=== PATIENT | female | born 1990 | race Caucasian/White ===

== ENCOUNTER 2016-07-09 10:49 | Emergency (ER) | payer MEDICAID, OTHER ==
[2016-07-09 10:50] VITALS: BMI 20.9
[2016-07-09 10:54] VITALS: O2SAT 100
[2016-07-09 11:28] LABS: RBC URINE < 1 /hpf (0-3); URINE BILIRUBIN NEGATIVE (NEGATIVE); URINE BLOOD NEGATIVE (NEGATIVE); URINE COLOR Yellow (YELLOW); URINE GLUCOSE (UA) NORMAL (Normal); URINE KETONE NEGATIVE (NEGATIVE); URINE LEUKOCYTE ESTERASE NEG Leu/uL (Negative); URINE PROTEIN NEGATIVE (NEGATIVE); URINE UROBILINOGEN NORMAL mg/dL (0.2-1.0); WBC URINE < 1 /hpf (0-5)
--- NOTE | 2016-07-09 11:53 | C.PDOC ---
History Of Present Illness Patient is a 25 y/o female, , presents to the ED for evaluation of soreness to vagina for the past 5 days. Patient states her test at home was positive. Patient also complains of constipation for the last 2 days. Otherwise , denies any fever, chills, vaginal bleeding, dysuria, abdominal pain, nausea, vomiting, or any other associated symptoms at this time. Time Seen by Provider: 07/09/16 11:12 Chief Complaint (Nursing): Female Genitourinary History Per: Patient History/Exam Limitations: no limitations Onset/Duration Of Symptoms: Days (5) Current Symptoms Are (Timing): Still Present Associated Symptoms: Constipation. denies: Fever, Chills, Nausea, Vomiting, Diarrhea, Loss Of Appetite, Back Pain, Chest Pain Alleviating Factors: None Recent travel outside of the [place]: No Additional History Per: Patient Abnormal Vaginal Bleeding: No : 6 Para: 5 Past Medical History Reviewed: Historical Data, Nursing Documentation, Vital Signs Vital Signs: Last Vital Signs Temp 98.3 F 07/09/16 13:06 Pulse 69 07/09/16 13:06 Resp 16 07/09/16 13:06 BP 120/76 07/09/16 13:06 Pulse Ox 100 07/09/16 13:06 - Medical History PMH: Depression - [facility] Procedures PSYCHIA INTERV/EVAL NEC (07/30/14) Family History: States: No Known Family Hx - Social History Hx Tobacco Use: No Hx Alcohol Use: No Hx Substance Use: No - Immunization History Hx Tetanus Toxoid Vaccination: No Hx Influenza Vaccination: No Hx Pneumococcal Vaccination: No Review Of Systems Except As Marked, All Systems Reviewed And Found Negative. Constitutional: Negative for: Fever, Chills Gastrointestinal: Positive for: Constipation. Negative for: Nausea, Vomiting, Abdominal Pain, Diarrhea Genitourinary: Positive for: Other (soreness to vagina). Negative for: Dysuria , Frequency, Hematuria, Vaginal Discharge, Vaginal Bleeding Musculoskeletal: Negative for: Back Pain Physical Exam - Physical Exam Appears: Non-toxic, No Acute Distress Skin: Normal Color, Warm, Dry Head: Atraumatic, Normacephalic Eye(s): bilateral: Normal Inspection, EOMI Neck: Normal ROM, Supple Chest: Symmetrical Cardiovascular: Rhythm Regular Respiratory: Normal Breath Sounds, No Rales, No Rhonchi, No Wheezing Gastrointestinal/Abdominal: Soft, No Tenderness, No Guarding, No Rebound Pelvic: Normal External Exam, No Vaginal Bleeding, No Vaginal Discharge, No Other (no swelling, or tenderness) Extremity: Normal ROM Neurological/Psych: Oriented x3, Normal Speech, Normal Cognition ED Course And Treatment O2 Sat by Pulse Oximetry: 100 (on RA) Pulse Ox Interpretation: Normal Progress Note: Labs ordered and reviewed. On reassessment, patient is resting comfortably, no acute distress. Medical Decision Making Medical Decision Makin y.o female states she found out was and has soreness to vagina, no abdominal pain or bleeding UA was negative for Patient is requesting blood test for BHCG is 25. Gave results to patient. She remains comfortable and in no acute distress. Advise patient to follow up with extraction supervisor Disposition Counseled Patient/Family Regarding: Need For Followup - [facility]position [facility] Disposition: HOME/ ROUTINE Disposition Time: 13:00 Condition: STABLE Additional Instructions: Please follow up with your extraction supervisor for further evaluation Instructions: (ED) - POA Present On Arrival: None - Clinical Impression Clinical Impression: at early stage - PA / FINAL BLOCK PRESS OPERATOR / Resident Statement MD/DO has reviewed & agrees with the documentation as recorded. - Scribe Statement The provider has reviewed the documentation as recorded by the Maryibtomy Mora All medical record entries made by the Maryibtomy were at my direction and personally dictated by me. I have reviewed the chart and agree that the record accurately reflects my personal performance of the history, physical exam, medical decision making, and the department course for this patient. I have also personally directed, reviewed, and agree with the discharge instructions and disposition.
[2016-07-09 13:07] VITALS: BP 120/76; PULSE 69; RESP 16; TEMP 98.3
== END 2016-07-09 13:07 | disposition home or self-care (01) ==
LOC: C.ER 10:49
DX: O26.891 Other specified pregnancy related conditions, first trimester (principal); Z3A.00 Weeks of gestation of pregnancy not specified

== ENCOUNTER 2016-07-12 20:37 | Emergency (ER) | payer MEDICAID, OTHER ==
[2016-07-12 20:38] VITALS: BMI 20.9
[2016-07-12] MEDS ORDERED: Sodium Chloride 0.9% 1,000 ML IV ONE (21:32)
[2016-07-12] MEDS ORDERED: Sodium Chloride 0.9% 1,000 ML ONE (21:45)
[2016-07-12 21:56] LABS: BASO % 0.5 % (0.0-2.0); EOS # 0.1 K/uL (0.0-0.7); EOS % 1.8 % (0.0-4.0); HEMATOCRIT 37.1 % (34.0-47.0); LYMPH # 2.2 K/uL (1.0-4.3); MEAN CELL VOLUME 85.9 fL (81.0-99.0); MEAN CORPUSCULAR HGB CONC 32.6 g/dL (33.0-37.0); MEAN PLATELET VOLUME 11.5 fL (7.2-11.7); MONO # 0.5 K/uL (0.0-0.8); MONO % 10.2 % (0.0-10.0); NRBC % 0.1 % (0.0-2.0); RED CELL DISTRIBUTION WIDTH 13.9 % (11.5-14.5); WHITE BLOOD COUNT 5.4 K/uL (4.8-10.8)
[2016-07-12 21:58] LABS: RBC URINE 24 /hpf (0-3); URINE BILIRUBIN NEGATIVE (NEGATIVE); URINE COLOR Yellow (YELLOW); URINE GLUCOSE (UA) NORMAL (Normal); URINE KETONE NEGATIVE (NEGATIVE); URINE LEUKOCYTE ESTERASE NEG Leu/uL (Negative); URINE PROTEIN NEGATIVE (NEGATIVE); WBC URINE 1 /hpf (0-5)
[2016-07-12 22:11] LABS: URINE BLOOD 1+ (NEGATIVE)
[2016-07-12 22:14] LABS: CHLORIDE 102 mmol/L (98-107); POTASSIUM 3.7 mmol/L (3.6-5.2); SODIUM 138 mmol/L (132-148)
[2016-07-12 22:16] LABS: GFR AFRICAN-AMERICAN > 60
--- NOTE | 2016-07-12 22:16 | C.PDOC ---
History Of Present Illness 25 y/o female, [id number], LMP 06/08/16, presents to ED with complaint of lower abdominal cramping and vaginal bleeding since this morning. Patient states she feels like she is having a miscarriage. Denies fever, chills, nausea, vomiting, urinary symptoms, or other complaints. Time Seen by Provider: 07/12/16 21:27 Chief Complaint (Nursing): Female Genitourinary History Per: Patient History/Exam Limitations: no limitations Onset/Duration Of Symptoms: Hrs Current Symptoms Are (Timing): Still Present Quality Of Discomfort: Cramping Associated Symptoms: Other (vaginal bleeding). denies: Fever, Chills, Nausea, Vomiting, Diarrhea, Urinary Symptoms Recent travel outside of the [place]: No Abnormal Vaginal Bleeding: Yes : 5 Para: 6 Miscarriage: 1 Past Medical History Reviewed: Historical Data, Nursing Documentation, Vital Signs Vital Signs: Last Vital Signs Temp 98.1 F 07/12/16 22:54 Pulse 68 07/12/16 22:54 Resp 17 07/12/16 22:54 BP 116/76 07/12/16 22:54 Pulse Ox 100 07/12/16 22:54 - Medical History PMH: Depression - [facility] Procedures PSYCHIA INTERV/EVAL NEC (07/30/14) Family History: States: Unknown Family Hx - Social History Hx Tobacco Use: No Hx Alcohol Use: No Hx Substance Use: No - Immunization History Hx Tetanus Toxoid Vaccination: No Hx Influenza Vaccination: No Hx Pneumococcal Vaccination: No Review Of Systems Except As Marked, All Systems Reviewed And Found Negative. Constitutional: Negative for: Fever, Chills Respiratory: Negative for: Cough, Shortness of Breath Gastrointestinal: Positive for: Abdominal Pain. Negative for: Nausea, Vomiting , Diarrhea Genitourinary: Positive for: Vaginal Bleeding. Negative for: Dysuria, Hematuria Skin: Negative for: Rash Physical Exam - Physical Exam Appears: Non-toxic, No Acute Distress Skin: Normal Color, Warm, Dry Head: Atraumatic, Normacephalic Oral Mucosa: Moist Respiratory: Normal Breath Sounds, No Rales, No Rhonchi, No Wheezing Gastrointestinal/Abdominal: Soft, Tenderness (mild, suprapubic), No Distention, No Guarding, No Rebound Back: No CVA Tenderness Pelvic: Other (deferred) Extremity: Normal ROM, Capillary Refill (< 2 esc. ) Neurological/Psych: Oriented x3, Normal Speech, Normal Cognition ED Course And Treatment - Laboratory Results Result Diagrams: 07/12/16 21:42 07/12/16 21:42 Lab Interpretation: Normal (HCG neg) Urine POC: Negative (ua neg.) O2 Sat by Pulse Oximetry: 96 (RA) Pulse Ox Interpretation: Normal - CT Scan/US Ultrasound Other Rad Studies (CT/US): Read By Radiologist, Radiology Report Reviewed CT/US Interpretation: IMPRESSION: 1. No intrauterine gestation. DDX: Early IUP , missed , ectopic Progress Note: Labs and transvaginal US ordered. Treated with IVFs and Ultram 50mg PO. Reevaluation Time: 23:10 Reassessment Condition: Improved Medical Decision Making Medical Decision Making: pt NOT menstrual bleeding and cramps. Disposition Doctor Will See Patient In The: Office Counseled Patient/Family Regarding: Studies Performed, Diagnosis - Disposition Disposition: HOME/ ROUTINE Disposition Time: 23:10 Condition: GOOD - Clinical Impression Clinical Impression: Heavy menstrual period - Scribe Statement The provider has reviewed the documentation as recorded by the Hank Garrison Provider Scribe Attestation: All medical record entries made by the Hank were at my direction and personally dictated by me. I have reviewed the chart and agree that the record accurately reflects my personal performance of the history, physical exam, medical decision making, and the department course for this patient. I have also personally directed, reviewed, and agree with the discharge instructions and disposition.
[2016-07-12 22:17] LABS: ALB/GLOB RATIO 1.3 (1.0-2.1); ALKALINE PHOSPHATASE 80 U/L (38-126); ALT/SGPT 14 U/L (9-52); AST/SGOT 36 U/L (14-36); BILIRUBIN,TOTAL 0.4 mg/dL (0.2-1.3); BLOOD UREA NITROGEN 14 mg/dL (7-17); CALCIUM 8.5 mg/dl (8.6-10.4); CARBON DIOXIDE 27 mmol/L (22-30); GLUCOSE,RANDOM 92 mg/dL (65-105); TOTAL PROTEIN 6.9 g/dL (6.3-8.3)
[2016-07-12 22:54] VITALS: BP 116/76; PULSE 68; RESP 17; TEMP 98.1
[2016-07-12 23:11] VITALS: O2SAT 96
--- NOTE | 2016-07-13 09:27 | US ---
HISTORY: ? miscarraige/ectopic COMPARISON: None available. TECHNIQUE: Transabdominal and transvaginal FINDINGS: UTERUS: Measures 9.5 x 4.9 x 5.6 cm. Normal in size and appearance. No fibroid or other mass lesion seen. ENDOMETRIUM: Measures 1.0 mm in diameter. No intrauterine gestation identified. CERVIX: 2.7 cm length. Unremarkable. RIGHT OVARY: Measures 3.1 x 1.9 x 3.3 cm. No solid mass. Normal flow. LEFT OVARY: Measures 3.4 x 1.6 x 3.7 cm. No solid mass. Normal flow. FREE FLUID: No significant free fluid noted. OTHER FINDINGS: None. IMPRESSION: No intrauterine gestation identified. Please correlate with beta HCG as ectopic gestation must be considered in the appropriate clinical setting with elevated beta HCG and no intrauterine gestational sac demonstrated. Preliminary interpretation of this examination was reported by [facility] at 10:32 p.m. on 07/12/2016. There is concurrence of this report with the preliminary interpretation.
== END 2016-07-12 23:19 | disposition home or self-care (01) ==
LOC: C.ER 20:37
DX: N92.0 Excessive and frequent menstruation with regular cycle (principal)
CPT/HCPCS: 76830; 76856; 80053; 81001; 84702; 84703; 85025; 86850; 86900; 96360; 99284; J7040

== ENCOUNTER 2017-09-11 19:49 | Emergency (ER) | payer MEDICAID, OTHER ==
[2017-09-11 19:49] VITALS: BMI 20.9
[2017-09-11 19:58] VITALS: RESP 16; TEMP 99.6
--- NOTE | 2017-09-11 20:01 | C.PDOC ---
"History Of Present Illness <Angela Quintana - Last Filed: 09/11/17 21:31> <Dorita Truong - Last Filed: 09/11/17 22:59> 27 year old female presents to the ER complaining of lower back pain radiating down right leg for 2 days. Notes h/o of similar episode when diagnosed with ? Restless leg syndrome versus pinched nerve. Also complains of pelvic pain x 2 days. She denies taking anything for the pain. She also denies any incontinence , dysuria, vaginal discharge or bleeding, hematuria, vomiting, diarrhea, change in sensation or fever. She reports her last test was positive. LMP: . (Angela Quintana) History Per: Patient History/Exam Limitations: no limitations Onset/Duration Of Symptoms: Days Current Symptoms Are (Timing): Still Present <Angela Quintana - Last Filed: 09/11/17 21:31> <Dorita Truong - Last Filed: 09/11/17 22:59> Time Seen by Provider: 09/11/17 19:58 Chief Complaint (Nursing): Hip Pain Past Medical History Reviewed: Historical Data, Nursing Documentation, Vital Signs - Medical History PMH: Depression Denies: HIV, HTN, Seizures, Sexually Transmitted Disease Other Surgeries: Hx of surgeries Family History: States: No Known Family Hx - Social History Hx Tobacco Use: No Hx Alcohol Use: No Hx Substance Use: No - Immunization History Hx Tetanus Toxoid Vaccination: No Hx Influenza Vaccination: No Hx Pneumococcal Vaccination: No <Angela Quintana - Last Filed: 09/11/17 21:31> Vital Signs: Last Vital Signs Temp 99.6 F 09/11/17 19:53 Pulse 78 09/11/17 19:53 Resp 16 09/11/17 19:53 BP 148/90 09/11/17 19:53 Pulse Ox 100 09/11/17 21:34 - [facility] Procedures PSYCHIA INTERV/EVAL NEC (07/30/14) Review Of Systems Except As Marked, All Systems Reviewed And Found Negative. Constitutional: Negative for: Fever, Chills Gastrointestinal: Negative for: Nausea, Vomiting, Diarrhea Genitourinary: Positive for: Pelvic Pain. Negative for: Dysuria, Incontinence, Hematuria, Vaginal Discharge, Vaginal Bleeding Musculoskeletal: Positive for: Back Pain (Lower back ) <Angela Quintana - Last Filed: 09/11/17 21:31> Physical Exam - Physical Exam Appears: Non-toxic, No Acute Distress Skin: Normal Color, Warm, Dry Head: Atraumatic, Normacephalic Eye(s): bilateral: Normal Inspection, EOMI Nose: Normal Oral Mucosa: Moist Chest: Symmetrical Cardiovascular: Rhythm Regular Respiratory: Normal Breath Sounds, No Accessory Muscle Use, Other (Speaking full sentences) Gastrointestinal/Abdominal: Soft, Tenderness (Suprapubic) Back: No CVA Tenderness, No Vertebral Tenderness, Other (Parasacral tenderness ) Extremity: Normal ROM Neurological/Psych: Oriented x3, Normal Speech, Normal Sensation Gait: Steady <Angela Quintana - Last Filed: 09/11/17 21:31> ED Course And Treatment O2 Sat by Pulse Oximetry: 100 (RA) Pulse Ox Interpretation: Normal Progress Note: Patient assessed and examined. Patient given Tylenol 650mg PO. Urine collected and sent to lab for analysis. US Pelvis ordered. Case endorsed to Dr Truong pending labs and US. <Angela Quintana - Last Filed: 09/11/17 21:31> - Laboratory Results Result Diagrams: 09/11/17 21:18 09/11/17 21:18 <Dorita Truong - Last Filed: 09/11/17 22:59> Disposition - Disposition Disposition Time: 22:00 <Angela Quintana - Last Filed: 09/11/17 21:31> <Dorita Truong - Last Filed: 09/11/17 22:59> - Disposition Condition: STABLE Forms: [employer] ([place]) - Clinical Impression Clinical Impression: Pelvic pain, Back pain - PA / SOLAR MANUFACTURER'S REPRESENTATIVE / Resident Statement MD/DO has reviewed & agrees with the documentation as recorded. - Scribe Statement The provider has reviewed the documentation as recorded by the Scribe <Angela Quintana - Last Filed: 09/11/17 21:31> <Dorita Truong - Last Filed: 09/11/17 22:59> - Scribe Statement Sheryl Merrill All medical record entries made by the Scribe were at my direction and personally dictated by me. I have reviewed the chart and agree that the record accurately reflects my personal performance of the history, physical exam, medical decision making, and the department course for this patient. I have also personally directed, reviewed, and agree with the discharge instructions and disposition. (Angela Quintana) Addendum <Angela Quintana - Last Filed: 09/11/17 21:31> <Dorita Truong - Last Filed: 09/11/17 22:59> Addendum: 09/11/17 22:59 EXAM: US First Trimester, Transabdominal US , Transvaginal CLINICAL HISTORY: 27 years old, female; Pain; complicated by abdominal or pelvic pain; Lower; First trimester; Gestational age or lmp: 08/15/2017; TECHNIQUE: Real-time transabdominal and transvaginal obstetrical ultrasound of the maternal pelvis and a first trimester with image documentation. Transvaginal imaging was used for better evaluation of the fetus and adnexa. COMPARISON: CT - ABD PELVIS W/O PO OR IV CONT 2015-05-05 18:17 FINDINGS: Gestation: Small anechoic eccentric fluid collection and along the endometrial canal measuring 4 mm x 4 mm x 4 mm, possibly representing a gestational sac. This would correspond to a mean gestational sac diameter of 0.4 cm. No yolk sac or pole. Placenta/amniotic fluid: Cannot be adequately evaluated given lack of definitive intrauterine . Uterus/cervix: The uterus measures 9.5 cm x 5.5 cm x 6.4 cm. Heterogeneous appearance of the endometrium which measures 2.3 cm in thickness. No myometrial mass. Ovaries: The right ovary is normal in size and echotexture measuring 3.1 cm x 2.0 cm x 3.1 cm. Normal color Doppler flow and spectral Doppler waveform are present within this ovary. The left ovary is normal size and echotexture measuring 3.3 cm x 2.5 cm x 3.6 cm. Normal color Doppler flow and spectral Doppler waveforms are present within this ovary. No mass. Free fluid: No free fluid. Bladder: The imaged urinary bladder is unremarkable. AKILAH HOPPER | Preliminary Radiology Report CONFIDENTIALITY STATEMENT This report is intended only for the use of the referring physician, and only in accordance with law, If you received this in error, call [phone] Page 2 of 2 IMPRESSION: 1. Anechoic structure within the endometrial canal measuring 4 mm which may represent a gestational sac. No pole or yolk sac are identified. This could represent a very early intrauterine , but is not definitive, and does not exclude the possibility of an ectopic (although no imaging findings are present to suggest an ectopic ). RECOMMEND close clinical surveillance, trending beta-hCGs, and followup ultrasound in 2 weeks. 2. Normal appearance of the ovaries. No ovarian torsion. 3. No adnexal mass or concerning adnexal abnormality. Thank you for allowing us to participate in the care of your patient. Dictated and Authenticated by: Leonardo Escamilla DO 09/11/2017 10:50 PM Eastern Time ([place] & [place]) (Dorita Truong"
[2017-09-11 20:30] LABS: SQUAMOUS EPITHIAL 3 /hpf (0-5); URINE BILIRUBIN NEGATIVE (NEGATIVE); URINE BLOOD NEGATIVE (NEGATIVE); URINE CLARITY Clear (Clear); URINE COLOR Yellow (YELLOW); URINE GLUCOSE (UA) NORMAL (Normal); URINE LEUKOCYTE ESTERASE NEG Leu/uL (Negative); URINE PROTEIN NEGATIVE (NEGATIVE); URINE UROBILINOGEN NORMAL mg/dL (0.2-1.0)
[2017-09-11 20:40] LABS: HCG,QUALITATIVE URINE POSITIVE (NEGATIVE)
[2017-09-11 21:35] LABS: BASO % 0.3 % (0.0-2.0); EOS # 0.1 K/uL (0.0-0.7); EOS % 1.1 % (0.0-4.0); HEMOGLOBIN 12.9 g/dL (11.0-16.0); LYMPH # 1.9 K/uL (1.0-4.3); LYMPH % 31.7 % (20.0-40.0); MEAN CELL VOLUME 86.2 fL (81.0-99.0); MEAN CORPUSCULAR HEMOGLOBIN 28.9 pg (27.0-31.0); MEAN CORPUSCULAR HGB CONC 33.6 g/dL (33.0-37.0); MEAN PLATELET VOLUME 12.4 fL (7.2-11.7); MONO # 0.5 K/uL (0.0-0.8); MONO % 8.6 % (0.0-10.0); NEUT # 3.5 K/uL (1.8-7.0); NEUT % 58.3 % (50.0-75.0); NRBC % 0.1 % (0.0-2.0); RBC 4.45 Mil/uL (3.80-5.20); RED CELL DISTRIBUTION WIDTH 14.6 % (11.5-14.5)
[2017-09-11 21:38] LABS: ALB/GLOB RATIO 1.6 (1.0-2.1); ALBUMIN 4.4 g/dL (3.5-5.0); ALT/SGPT 16 U/L (9-52); AST/SGOT 12 U/L (14-36); BLOOD UREA NITROGEN 11 mg/dL (7-17); CALCIUM 9.2 mg/dl (8.6-10.4); GFR AFRICAN-AMERICAN > 60; GFR NON-AFRICAN AMERICAN > 60
[2017-09-11 23:23] VITALS: BP 132/84; PULSE 76; O2SAT 99
--- NOTE | 2017-09-12 10:30 | US ---
Pelvic ultrasound History: Pelvic pain. Comparison: None available. Technique: Real-time sonography was performed through the pelvis utilizing transabdominal and transvaginal techniques. Findings: Uterus: 9.5 x 5.5 x 6.4 centimeters. Heterogeneous echotexture. Anteverted. Beta HCG level pending. Heterogeneous appearance of the endometrium measuring up to 2.3 centimeters, prominent. Small anechoic eccentric fluid collection along the endometrial canal measuring 4 x 4 x 4 millimeters. This may represent a gestational sac. This would correspond to a mean gestational sac diameter of 4 millimeters. No yolk sac or pole identified. Trace free fluid within the pelvic cul-de-sac. Right ovary: 3.1 x 1.9 x 3.1 centimeters. Normal flow. Left ovary: 3.3 x 2.5 x 3.6 centimeters. Normal flow. Impression: 1. B HCG level pending. Clinical correlation. 2. Anechoic structure within the endometrial canal measuring 4 millimeters which may represent a gestational sac. No pole or yolk sac are identified. This may represent a very early intrauterine but is not definitive and does not exclude the possibility of ectopic (although no imaging findings are present to suggest an ectopic ). Recommend close clinical surveillance, trending beta HCGs, and follow-up ultrasound in 1-2 weeks. These findings were preliminarily reported at 10:50 p.m. on 09/11/[address] Leonardo Piedra from [facility].
== END 2017-09-11 23:22 | disposition home or self-care (01) ==
LOC: C.ER 19:49
DX: O26.891 Other specified pregnancy related conditions, first trimester (principal); M54.5 Low back pain; R10.2 Pelvic and perineal pain

== ENCOUNTER 2017-09-13 19:07 | Emergency (ER) | payer SELFPAY ==
[2017-09-13 19:08] VITALS: BMI 20.9
[2017-09-13 19:31] VITALS: BP 132/87; PULSE 84; RESP 14; TEMP 98.5; O2SAT 99
--- NOTE | 2017-09-13 20:46 | C.PDOC ---
History Of Present Illness 27 year old female presents to the ER for a follow up beta hcg. Patient was seen in the ER on 09/11 and was found to have hcg of 72, she was advised to follow up for repeat beta hcg and possible US. Denies vaginal bleeding, vaginal discharge, or abdominal pain. Time Seen by Provider: 09/13/17 19:39 Chief Complaint (Nursing): Medical Clearance History Per: Patient History/Exam Limitations: no limitations Onset/Duration Of Symptoms: Days Current Symptoms Are (Timing): Still Present Recent travel outside of the [place]: No Past Medical History Reviewed: Historical Data, Nursing Documentation, Vital Signs Vital Signs: Last Vital Signs Temp 98.5 F 09/13/17 19:28 Pulse 84 09/13/17 19:28 Resp 14 09/13/17 19:28 BP 132/87 09/13/17 19:28 Pulse Ox 99 09/13/17 20:55 - Medical History PMH: Depression - [facility] Procedures PSYCHIA INTERV/EVAL NEC (07/30/14) Family History: States: Unknown Family Hx - Social History Hx Tobacco Use: No Hx Alcohol Use: No Hx Substance Use: No - Immunization History Hx Tetanus Toxoid Vaccination: No Hx Influenza Vaccination: No Hx Pneumococcal Vaccination: No Review Of Systems Constitutional: Negative for: Fever, Chills Gastrointestinal: Negative for: Abdominal Pain Genitourinary: Negative for: Vaginal Discharge, Vaginal Bleeding, Pelvic Pain Musculoskeletal: Negative for: Back Pain Physical Exam - Physical Exam Appears: Non-toxic Skin: Normal Color, Warm, Dry Head: Atraumatic, Normacephalic Eye(s): bilateral: Normal Inspection Chest: Symmetrical, No Tenderness Cardiovascular: Rhythm Regular Respiratory: Normal Breath Sounds, No Rales, No Rhonchi, No Wheezing Gastrointestinal/Abdominal: Soft, No Tenderness Neurological/Psych: Oriented x3, Normal Speech ED Course And Treatment O2 Sat by Pulse Oximetry: 99 (Room air) Pulse Ox Interpretation: Normal Progress Note: Beta hcg ordered. Patient is in no distress at this time, vitals are stable, hcg results were discussed with patient, repeat US not recommended at this time. Pt was advised to follow up with OB. Reevaluation Time: 22:52 Reassessment Condition: Improved Disposition - Disposition Disposition: HOME/ ROUTINE Disposition Time: 22:50 Condition: STABLE Additional Instructions: Please follow up with DRY HOUSE WHEELER for repeat BHCG Return to ER if worse Forms: General Discharge Instructions, [facility] (Norwegian) - Clinical Impression Clinical Impression: Medical assessment, Visit for blood test - PA / SITE SUPERVISING TECHNICAL OPERATOR / Resident Statement MD/DO has reviewed & agrees with the documentation as recorded. - Scribe Statement The provider has reviewed the documentation as recorded by the Scribe Samson Og All medical record entries made by the Scribe were at my direction and personally dictated by me. I have reviewed the chart and agree that the record accurately reflects my personal performance of the history, physical exam, medical decision making, and the department course for this patient. I have also personally directed, reviewed, and agree with the discharge instructions and disposition.
== END 2017-09-13 21:06 | disposition home or self-care (01) ==
LOC: C.ER 19:07
DX: Z36.89 Encounter for other specified antenatal screening (principal)

== ENCOUNTER 2017-10-22 10:26 | Emergency (ER) | payer OTHER ==
[2017-10-22 10:27] VITALS: BMI 20.9
[2017-10-22 10:37] VITALS: RESP 18
[2017-10-22 11:13] LABS: BASO % 0.4 % (0.0-2.0); EOS % 0.6 % (0.0-4.0); LYMPH # 1.5 K/uL (1.0-4.3); MEAN CELL VOLUME 85.6 fL (81.0-99.0); MEAN CORPUSCULAR HEMOGLOBIN 29.5 pg (27.0-31.0); MEAN CORPUSCULAR HGB CONC 34.5 g/dL (33.0-37.0); MEAN PLATELET VOLUME 11.2 fL (7.2-11.7); MONO # 0.4 K/uL (0.0-0.8); MONO % 6.5 % (0.0-10.0); NEUT # 4.3 K/uL (1.8-7.0); NEUT % 68.5 % (50.0-75.0); NRBC % 0.1 % (0.0-2.0); RBC 4.4 Mil/uL (3.80-5.20); RED CELL DISTRIBUTION WIDTH 14.3 % (11.5-14.5); WHITE BLOOD COUNT 6.3 K/uL (4.8-10.8)
--- NOTE | 2017-10-22 11:13 | C.PDOC ---
History Of Present Illness 27 y/o A3 female, approximately 9 weeks , presents to the ED complaining of abdominal cramping that started last night. Associated with light vaginal spotting this morning. Patient then called her OBGYN, Dr. Clark, who referred her to come to the ED. Her last ultrasound was 1.5 weeks ago and was normal per patient. She states her last three pregnancies have been miscarried, at 11 weeks, 6 weeks, and 7 weeks, respectively. Patient notes the cramping comes and goes, and is worsened when sitting in certain positions. Otherwise she denies any fever, chills, nausea, vomiting, or other associated symptoms. Time Seen by Provider: 10/22/17 10:41 Chief Complaint (Nursing): Female Genitourinary History Per: Patient History/Exam Limitations: no limitations Onset/Duration Of Symptoms: Hrs Current Symptoms Are (Timing): Still Present Quality Of Discomfort: Cramping Abnormal Vaginal Bleeding: Yes : 9 Para: 5 Miscarriage: 3 Past Medical History Reviewed: Historical Data, Nursing Documentation, Vital Signs Vital Signs: Last Vital Signs Temp 98.6 F 10/22/17 10:35 Pulse 80 10/22/17 10:35 Resp 18 10/22/17 10:35 BP 146/82 10/22/17 10:35 Pulse Ox 99 10/22/17 12:20 - Medical History PMH: Depression, HTN Denies: HIV, Seizures, Sexually Transmitted Disease Surgical History: No Surg Hx Denies: - [facility] Procedures PSYCHIA INTERV/EVAL NEC (07/30/14) Family History: States: Unknown Family Hx - Social History Hx Tobacco Use: No Hx Alcohol Use: No Hx Substance Use: No - Immunization History Hx Tetanus Toxoid Vaccination: No Hx Influenza Vaccination: No Hx Pneumococcal Vaccination: No Review Of Systems Constitutional: Negative for: Fever, Chills, Sweats Cardiovascular: Negative for: Chest Pain Respiratory: Negative for: Shortness of Breath Gastrointestinal: Positive for: Abdominal Pain (cramping). Negative for: Nausea , Vomiting, Diarrhea Genitourinary: Positive for: Vaginal Bleeding (spotting). Negative for: Dysuria , Incontinence, Vaginal Discharge Neurological: Negative for: Weakness, Headache, Dizziness Physical Exam - Physical Exam Appears: Non-toxic, No Acute Distress Skin: Normal Color, Warm, Dry Head: Atraumatic, Normacephalic Eye(s): bilateral: Normal Inspection, PERRL, EOMI Oral Mucosa: Moist Neck: Supple Chest: Symmetrical Cardiovascular: Rhythm Regular Respiratory: Normal Breath Sounds, No Rales, No Rhonchi, No Wheezing Gastrointestinal/Abdominal: Bowel Sounds (normoactive), Soft, Tenderness ( Minimal suprapubic tenderness), No Guarding, No Rebound Back: Normal Inspection Extremity: Bilateral: Atraumatic, Normal Color And Temperature, Normal ROM Pulses: Left Dorsalis Pedis: Normal, Right Dorsalis Pedis: Normal Neurological/Psych: Oriented x3, Normal Speech ED Course And Treatment - Laboratory Results Result Diagrams: 10/22/17 11:08 10/22/17 11:08 O2 Sat by Pulse Oximetry: 99 (RA) Pulse Ox Interpretation: Normal - CT Scan/US US Other Rad Studies (CT/US): Read By Radiologist, Radiology Report Reviewed CT/US Interpretation: Accession No. : [id number]. Patient Name / ID : CYNTHIA ISBELL / [id number]. Exam Date : 10/22/2017 11:18:33 ( Approved ). Study Comment : Sex / Age : F / 27Y. Creator : Adelina Suarez MD. Dictator : Adelina Suarez MD. Audio Recording Engineer : [employer]clamation Kettle Tender : Adelina Suarez MD. Approver2 : Report Date : 10/22/2017 11:36:52. My Comment : . Date of service: 10/22/17. Indication: , spotting, abdominal pain. Comparison: Pelvic ultrasound performed 09/11/17. Technique: Transabdominal pelvic ultrasound. Findings: The uterus measures approximately 11.3 x 8.1 x 9.4 cm. Anteverted. Cervix length measures approximately 3.6 cm. There is a single intrauterine fetus present. 4 mm yolk sac. The gestational sac measures 4.8 cm and is compatible with a gestational age of 10 weeks 4 days. The crown- rump length measures 3.0 cm and is compatible with a gestational age of 9 weeks 6 days. There is heart motion which measured 163.5 BPM. The right ovary measures 3.1 x 1.9 x 2.4 cm. The left ovary measures 3.5 x 2.3 x 3.2 cm. Blood flow was demonstrated to both ovaries. Impression: Live single intrauterine with estimated gestational age 9 weeks 6 days. heart rate 163.5 bpm. Advise an anomaly screen at 16-18 weeks gestational age Medical Decision Making Medical Decision Making: Initial Plan: --Blood work --Urinalysis --Blood type/screen --OB US Labs reviewed. UA is negative. Ultrasound demonstrates live IUP, with estimated age of 9 weeks 6 days. Copy of report provided. 12:[address] Clark, who advises patient can be discharged home and follow up in the office on Wednesday. patient advised pelvic rest, blood type is B positive, no need for Rhogam Disposition Discussed With Dr.: Clayton Clark Doctor Will See Patient In The: Office Counseled Patient/Family Regarding: Studies Performed, Diagnosis, Need For Followup - Disposition Referrals: Clayton Clark MD [Staff Provider] - Disposition: HOME/ ROUTINE Disposition Time: 12:31 Condition: GOOD Additional Instructions: Please follow up with Dr Clark on Wednesday. Bring ultrasound report with you. Pelvic rest- nothing in vagina, no sex, tampons or douching. Return to ER for any worsening pain, heavy vaginal bleeding or any other concerns. Instructions: Threatened Miscarriage (DC) Forms: [employer] (N[place]ian), General Discharge Instructions - POA Present On Arrival: None - Clinical Impression Clinical Impression: Threatened - PA / ROUTE SUPERVISOR / Resident Statement MD/ has reviewed & agrees with the documentation as recorded. - Scribe Statement The provider has reviewed the documentation as recorded by the Scribe (Melissa Mendez) All medical record entries made by the Scribe were at my direction and personally dictated by me. I have reviewed the chart and agree that the record accurately reflects my personal performance of the history, physical exam, medical decision making, and the department course for this patient. I have also personally directed, reviewed, and agree with the discharge instructions and disposition.
[2017-10-22 11:18] LABS: SQUAMOUS EPITHIAL 2 /hpf (0-5); URINE BILIRUBIN NEGATIVE (NEGATIVE); URINE BLOOD NEGATIVE (NEGATIVE); URINE CLARITY Clear (Clear); URINE COLOR Yellow (YELLOW); URINE GLUCOSE (UA) NORMAL (Normal); URINE LEUKOCYTE ESTERASE NEG Leu/uL (Negative); URINE PROTEIN NEGATIVE (NEGATIVE); URINE UROBILINOGEN NORMAL mg/dL (0.2-1.0)
[2017-10-22 11:26] LABS: ALB/GLOB RATIO 1.4 (1.0-2.1); ALBUMIN 4.2 g/dL (3.5-5.0); ALT/SGPT 22 U/L (9-52); AST/SGOT 15 U/L (14-36); BLOOD UREA NITROGEN 9 mg/dL (7-17); CALCIUM 9.3 mg/dl (8.6-10.4); GFR NON-AFRICAN AMERICAN > 60
--- NOTE | 2017-10-22 11:38 | US ---
Date of service: 10/22/17 Indication: , spotting, abdominal pain Comparison: Pelvic ultrasound performed 09/11/17 Technique: Transabdominal pelvic ultrasound Findings: The uterus measures approximately 11.3 x 8.1 x 9.4 cm. Anteverted. Cervix length measures approximately 3.6 cm. There is a single intrauterine fetus present. 4 mm yolk sac. The gestational sac measures 4.8 cm and is compatible with a gestational age of 10 weeks 4 days. The crown-rump length measures 3.0 cm and is compatible with a gestational age of 9 weeks 6 days. There is heart motion which measured 163.5 BPM. The right ovary measures 3.1 x 1.9 x 2.4 cm. The left ovary measures 3.5 x 2.3 x 3.2 cm. Blood flow was demonstrated to both ovaries. Impression: Live single intrauterine with estimated gestational age 9 weeks 6 days. heart rate 163.5 bpm. Advise an anomaly screen at 16-18 weeks gestational age
[2017-10-22 12:44] VITALS: BP 130/81; PULSE 69; TEMP 98.4
[2017-10-22 18:55] VITALS: O2SAT 99
== END 2017-10-22 12:44 | disposition home or self-care (01) ==
LOC: C.ER 10:26
DX: O20.0 Threatened abortion (principal); Z3A.11 11 weeks gestation of pregnancy

== ENCOUNTER 2017-12-06 13:29 | Emergency (ER) | payer MEDICAID ==
[2017-12-06 13:29] VITALS: BMI 20.9
[2017-12-06 13:53] VITALS: BP 142/91; PULSE 86; RESP 16; TEMP 99; O2SAT 99
== END 2017-12-06 15:29 | disposition left against medical advice (07) ==
LOC: C.ER 13:29
DX: Z02.89 Encounter for other administrative examinations (principal); R10.9 Unspecified abdominal pain

== ENCOUNTER 2018-02-09 22:55 | Emergency (ER) | payer MEDICAID, OTHER ==
[2018-02-10 00:08] VITALS: BMI 26.9
[2018-02-10 00:27] LABS: SQUAMOUS EPITHIAL 3 /hpf (0-5); URINE BACTERIA RARE (<OCC); URINE BILIRUBIN NEGATIVE (NEGATIVE); URINE BLOOD NEGATIVE (NEGATIVE); URINE CLARITY Hazy (Clear); URINE COLOR Yellow (YELLOW); URINE GLUCOSE (UA) NORMAL (Normal); URINE LEUKOCYTE ESTERASE 1+ Leu/uL (Negative); URINE PROTEIN NEGATIVE (NEGATIVE); URINE UROBILINOGEN NORMAL mg/dL (0.2-1.0)
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
[2018-02-10 05:05] VITALS: BP 120/72; PULSE 78; RESP 18; TEMP 97.5
== END 2018-02-10 00:40 | disposition home or self-care (01) ==
LOC: C.EROB 22:55
DX: O26.892 Other specified pregnancy related conditions, second trimester (principal); Z3A.27 27 weeks gestation of pregnancy

== ENCOUNTER 2018-03-11 12:47 | Emergency (ER) | payer OTHER ==
[2018-03-11] MEDS ORDERED: Betamethasone Soluspan 30 mg/5mL Inj Susp IM ONE (13:22)
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
[2018-03-11 14:46] LABS: SQUAMOUS EPITHIAL 5 /hpf (0-5); URINE BACTERIA OCC (<OCC); URINE BILIRUBIN NEGATIVE (NEGATIVE); URINE BLOOD NEGATIVE (NEGATIVE); URINE CLARITY Clear (Clear); URINE COLOR Yellow (YELLOW); URINE GLUCOSE (UA) NORMAL (Normal); URINE LEUKOCYTE ESTERASE NEG Leu/uL (Negative); URINE PROTEIN NEGATIVE (NEGATIVE); URINE UROBILINOGEN NORMAL mg/dL (0.2-1.0)
[2018-03-11 18:50] VITALS: BP 105/69; PULSE 83
== END 2018-03-11 14:45 | disposition home or self-care (01) ==
LOC: C.EROB 12:47
DX: O26.93 Pregnancy related conditions, unspecified, third trimester (principal); Z3A.30 30 weeks gestation of pregnancy
CPT/HCPCS: 81001; 96372; 99283; J0702

== ENCOUNTER 2018-04-27 06:20 | Inpatient (IN) | payer MEDICAID, OTHER ==
--- NOTE | 2018-04-27 07:13 | OBADHP ---
Datetime: 04/27/2018 07:08 Admit Comment, IP Provider: at 37 bweeks here fir indution for ch htn, oc c cts, b, lof +fm. pt is taking labetol. obh 5 x pmh ch htn med lab all nkda posh de soch de ve /-2 a/p at at 37qeks here fir induction for pch htn ad chidi to l_dnpo/ivf cytotec blod test bp check antivcipate Pelvic Type - PN: Adequate Extremities - PN: Normal Abdomen - PN: Normal Back - PN: Normal Breast - PN: Normal Lungs - PN: Normal Heart - PN: Normal Thyroid - PN: Normal Neurologic - PN: Normal HEENT - PN: Normal General - PN: Normal FHR - Baseline A Provider: 130 Membranes, Provider: Intact Contraction Comments Provider: occ IP Hx Assessment: The History has been Reviewed and is Current Vital Signs Provider: Reviewed; Within Normal Limits IP Chief Complaint: Scheduled induction of labor NICHD Variability Prov Fetus A: Moderate 6-25bpm NICHD Accel Fetus A IP Provider: 15X15 Dilatation, Provider: 2 Effacement, Provider: 70 Station, Provider: -2 Genitourinary Exam: Normal DTRs - PN: Normal EGA AdmitDate IP: 37.0 IP Adm Impression: Term, intrauterine IP Admit Plan: Admit to unit; Initiate labor induction protocol Datetime: 03/11/2018 14:14 IP Chief Complaint Other: Sent from Dr. Clark's off for Celestone injection Presentation-Admit: Vertex Gestation - Est Wks by US: 30.5 FHR Category Provider Fetus A: Category I
[2018-04-27 07:14] VITALS: BMI 32.2
[2018-04-27] MEDS ORDERED: Lactated Ringer's 1,000 ML IV SCH (07:15)
[2018-04-27 08:20] LABS: EOS % 0.7 % (0.0-4.0); WHITE BLOOD COUNT 7.3 K/uL (4.8-10.8)
[2018-04-27 08:22] LABS: SQUAMOUS EPITHIAL 1 /hpf (0-5); URINE BILIRUBIN NEGATIVE (NEGATIVE); URINE BLOOD NEGATIVE (NEGATIVE); URINE CLARITY Hazy (Clear); URINE COLOR Yellow (YELLOW); URINE GLUCOSE (UA) NORMAL (Normal); URINE LEUKOCYTE ESTERASE NEG Leu/uL (Negative); URINE PROTEIN NEGATIVE (NEGATIVE); URINE UROBILINOGEN NORMAL mg/dL (0.2-1.0)
[2018-04-27 08:27] LABS: PROTHROMBIN TIME 10.9 SECONDS (9.7-12.2)
[2018-04-27 08:33] LABS: BASO % 0.2 % (0.0-2.0); LYMPH # 1.6 K/uL (1.0-4.3); LYMPH % 21.7 % (20.0-40.0); MEAN CORPUSCULAR HEMOGLOBIN 26.2 pg (27.0-31.0); MEAN CORPUSCULAR HGB CONC 32.6 g/dL (33.0-37.0); MEAN PLATELET VOLUME 11.8 fL (7.2-11.7); MONO # 0.6 K/uL (0.0-0.8); MONO % 8.9 % (0.0-10.0); NEUT % 68.5 % (50.0-75.0); NRBC % 0.1 % (0.0-2.0); RBC 3.84 Mil/uL (3.80-5.20); RED CELL DISTRIBUTION WIDTH 14.1 % (11.5-14.5)
[2018-04-27 08:39] LABS: HEMOGLOBIN 10.1 g/dL (11.0-16.0); MEAN CELL VOLUME 80.5 fL (81.0-99.0)
[2018-04-27 08:42] LABS: ALB/GLOB RATIO 1.1 (1.0-2.1); ALBUMIN 3.4 g/dL (3.5-5.0)
[2018-04-27] MEDS ORDERED: Oxytocin 30 UNIT 30 UNITS/500 ML BAG IV ONE ×2 (11:40→11:52)
--- NOTE | 2018-04-27 11:46 | OBPN ---
Datetime: 04/27/2018 11:44 IP Procedures: Artificial ROM; Sterile Vag Exam IP Progress Plan: Augmentation Contraction Comments Provider: q1-4 FHR - Baseline A Provider: 140 IP Progress Note Comment: pt was examined at bed side_ ve 3-4/70/-2 arom start pitoxinb anticipate Vital Signs Provider: Reviewed; Within Normal Limits NICHD Accel Fetus A IP Provider: 15X15 FHR Category Provider Fetus A: Category I NICHD Variability Prov Fetus A: Moderate 6-25bpm Dilatation, Provider: 4 Effacement, Provider: 70 Station, Provider: -2 Datetime: 04/27/2018 07:08 Membranes, Provider: Intact Datetime: 03/11/2018 14:14 Gestation - Est Wks by US: 30.5 Presentation-Admit: Vertex
[2018-04-27] MEDS ORDERED: Nalbuphine HCL 10 mg/ml Ampule IVP PRN (12:00)
[2018-04-27] MEDS ORDERED: Fentanyl/Bupivacaine HCl 250 ML EPI ONE (12:33)
[2018-04-27] MEDS ORDERED: Bupivacaine HCl 0.5% PF (10 ml) Inj ONE (15:35)
--- NOTE | 2018-04-27 16:10 | OBDS ---
MATERNAL INFORMATION Provider Comments: dr vicenta baby delivrd in bull. emmetral clean 9/9 no com LABOR SUMMARY EDC: 05/18/2018 00:00 No. Babies in Womb: 1 LABOR INFORMATION Cervical Ripening Agents: Cytotec @ (Annotations: 50mcg po) Group B Beta Strep: Negative MEMBRANES Membranes Rupture Method: Artificial Rupture of Membranes: 04/27/2018 11:45 Amniotic Fluid Color: Clear Amniotic Fluid Amount: Moderate Amniotic Fluid Odor: None VAGINAL DELIVERY Episiotomy: None Laceration Extension: First Degree Laceration Type: Perineal PRESENTATION/POSITION BABY A Presentation: Cephalic Cephalic Presentation: Vertex Vertex Position: Left Occipital Anterior Breech Presentation: N/A PLACENTA INFORMATION BABY A Placenta Method of Delivery: Spontaneous Placenta Status: Delivered INFORMATION BABY A Gestational Age at Delivery: 37.0 IDENTIFICATION/MEDS BABY A ID Band Number: [id number] Sensor Number: [id number]
[2018-04-27] MEDS ORDERED: Oxycodone/Acetaminophen 5/325 mg Tab PO PRN (16:14)
[2018-04-27] MEDS ORDERED: Oxycodone/Acetaminophen 5/325 mg Tab ONE (20:33)
[2018-04-27] MEDS: Oxycodone/Acetaminophen 5/325 mg Tab PO PRN (20:35)
--- NOTE | 2018-04-28 06:10 | OBPPN ---
Datetime: 04/28/2018 06:03 PP Pain Prov: Within normal limits PP Nausea Prov: Denies PP Flatus Prov: Yes PP Abdomen/Uterus Prov: Normal PP Lochia Prov: Normal PP Impression Prov: Normal progression PP Plan Prov: Continue present management PP Progress Note Prov: pt was seen at ed side, painj under cobtrol, no n/v, toleraying deit, vooid ing, in lochia ppd#1 s/p cont pp casre cont pain manag cbc Vital Signs Provider PP: Reviewed; Within Normal Limits
[2018-04-28 08:41] LABS: BASO % 0.3 % (0.0-2.0); EOS # 0.1 K/uL (0.0-0.7); EOS % 1.3 % (0.0-4.0); HEMOGLOBIN 9.8 g/dL (11.0-16.0); LYMPH # 1.6 K/uL (1.0-4.3); LYMPH % 23.6 % (20.0-40.0); MEAN CELL VOLUME 81.6 fL (81.0-99.0); MEAN CORPUSCULAR HEMOGLOBIN 26.1 pg (27.0-31.0); MEAN CORPUSCULAR HGB CONC 31.9 g/dL (33.0-37.0); MEAN PLATELET VOLUME 12.5 fL (7.2-11.7); MONO # 0.4 K/uL (0.0-0.8); MONO % 6.5 % (0.0-10.0); NEUT # 4.6 K/uL (1.8-7.0); NEUT % 68.3 % (50.0-75.0); NRBC % 0.1 % (0.0-2.0); RBC 3.77 Mil/uL (3.80-5.20); RED CELL DISTRIBUTION WIDTH 14.1 % (11.5-14.5); WHITE BLOOD COUNT 6.7 K/uL (4.8-10.8)
[2018-04-28] MEDS ORDERED: Benzocaine/Menthol 20%-0.5% Topical Spray (60 ml) EXT PRN (09:00)
[2018-04-28 19:19] VITALS: TEMP 98.2
[2018-04-28] MEDS: Oxycodone/Acetaminophen 5/325 mg Tab PO PRN (20:56)
[2018-04-29 09:15] VITALS: BP 101/54; PULSE 84; RESP 18; O2SAT 98
== END 2018-04-29 11:30 | disposition home or self-care (01) | DRG 372 ==
LOC: C.EROB 06:20 → C.4D 07:14 → C.4M 20:50
PROVIDERS: ADMIT Obstetrics & Gynecology; ATTEND Obstetrics & Gynecology
PROC: 10E0XZZ Delivery of Products of Conception, External Approach (ICD-10-PCS; principal; 2018-04-27)
PROC: 10907ZC Drainage of Amniotic Fluid, Therapeutic from Products of Conception, Via Natural or Artificial Opening (ICD-10-PCS; 2018-04-27)
PROC: 0HQ9XZZ Repair Perineum Skin, External Approach (ICD-10-PCS; 2018-04-27)
DX: O16.4 Unspecified maternal hypertension, complicating childbirth (principal); I10 Essential (primary) hypertension; O70.0 First degree perineal laceration during delivery; Z3A.37 37 weeks gestation of pregnancy; Z37.0 Single live birth